=== PATIENT | male | born 1965 | race Caucasian/White ===

== ENCOUNTER → 2018-07-22 09:35 | Outpatient (CLI) | payer OTHER, SELFPAY ==
[2018-07-22 11:30] LABS: Anion Gap 6 (5-15); BUN 14 mg/dL (7-18); BUN/Creat Ratio 14.1 RATIO (10-20); Calcium,Total 9.2 mg/dL (8.5-10.1); Chloride 106 mmol/L (98-107); EST Glomerular Filtration Rate 83 mL/min (>60); Est Glom Filt Rate - Afr Amer 101 mL/min (>60); Glucose 92 mg/dL (74-106); Potassium 4.1 mmol/L (3.5-5.1); Sodium Level 139 mmol/L (136-145)
== END ==
PROVIDERS: Family Provider Family Medicine; PCP Family Medicine; Referring Provider Family Medicine; Visit Provider Family Medicine
DX: N52.9 Male erectile dysfunction, unspecified (principal)
CPT/HCPCS: 36415; 80048; 84403

== ENCOUNTER → 2019-01-29 | Outpatient (CLI) | payer BC, SELFPAY ==
--- NOTE | 2019-01-29 16:56 | RAD_ITS ---
STUDY: X-RAY - RIGHT WRIST REASON FOR EXAM: Male, 53 years old. Pain. History of prior wrist fracture. TECHNIQUE: 3 view(s) of the wrist were obtained. COMPARISON: None. FINDINGS: There are post traumatic changes noted in the scaphoid bone. There is no evidence of acute fracture or dislocation. There are moderate degenerative changes. There are no radiodense foreign bodies. RAD/Wrist min 3 Views IMPRESSION: Post traumatic changes noted in the scaphoid bone from prior trauma. No acute fracture or dislocation. Moderate degenerative change. Electronically Signed: Alfonzo Herrera, at 20:22 EDT Tel , Service support ,
== END | disposition home or self-care (01) ==
LOC: MTRAD 16:54
PROVIDERS: Family Provider Family Medicine; PCP Family Medicine; Referring Provider Nurse Practitioner Adult Health; Visit Provider Nurse Practitioner Adult Health
DX: M25.531 Pain in right wrist (principal)
CPT/HCPCS: 73110